=== PATIENT | male | born 1965 | race Caucasian/White ===

== ENCOUNTER 2022-01-13 13:16 | Inpatient (IN) | payer BC ==
[~2022-01-13] VITALS: Ht 188 cm; Wt 109.1 kg
[2022-01-13] VITALS (24 sets, daily range): BP systolic 140–199; BP diastolic 86–110
[2022-01-13] MEDS ORDERED: fentaNYL PF VIAL 100 MCG/2 ML VIAL ONE (13:18)
[2022-01-13] MEDS ORDERED: MIDAZOLAM HCL/PF 2 MG/2 ML VIAL. ONE (13:19)
[2022-01-13] MEDS ORDERED: BIVALIRUDIN 250 MG VIAL. IVP ONE ×2 (13:19→14:00)
[2022-01-13] MEDS ORDERED: IODIXANOL 320 MG/ML 100 ML VIAL. ONE ×2 (13:24→13:50)
[2022-01-13] MEDS ORDERED: NITROGLYCERIN 200 MCG/2 ML SYRINGE FOR CATH/VASC LAB. ONE (13:40)
[2022-01-13] MEDS ORDERED: TICAGRELOR 90 MG TABLET. ONE (13:59)
[2022-01-13] MEDS ORDERED: MIDAZOLAM HCL/PF 2 MG/2 ML VIAL. IV ONE (14:00)
[2022-01-13] MEDS ORDERED: fentaNYL PF VIAL 100 MCG/2 ML VIAL IV ONE (14:00)
[2022-01-13] MEDS ORDERED: TICAGRELOR 90 MG TABLET. PO ONE (14:00)
[2022-01-13] MEDS ORDERED: NITROGLYCERIN 200 MCG/2 ML SYRINGE FOR CATH/VASC LAB. IART ONE (14:00)
[2022-01-13] MEDS ORDERED: IODIXANOL 320 MG/ML 100 ML VIAL. IART ONE (14:00)
[2022-01-13] MEDS ORDERED: LIDOCAINE 1% Multi-Dose 20 ML VIAL. INJ ONE (14:00)
--- NOTE | 2022-01-13 14:05 | PDOC ---
MODERATE SEDATION ASSESSMENT RISKS/ALTERNATIVES Risks/Alternatives Risks and alternatives of this type of sedation and procedure discussed with: RISK/ALTERNATIVES: Patient H & P ON CHART H & P H & P on chart and reviewed for co-morbid conditions and appropriate labs. H&P ON CHART: Yes STATUS PREG STATUS ASSESSED: N/A MEDS/ALLERGIES REVIEWED Meds/Allergies Reviewed Medications and Allergies including time and route of recently administered narcotics and sedatives. MEDS/ALLERGIES REVIEWED: Yes ASA RATING ASA RATING: III AIRWAY ASSESSMENT Airway Assessment Airway patency, oral function limitations, presence of caps, crowns, dentures, partials, and ability to extend neck assessed. AIRWAY ASSESSMENT: Yes MALLAMPATI SCORE MALLAMPATI SCORE: II PRE-SEDATION ASSESSMENT PRE-SEDATION ASSESSMENT: Yes BRUCE MARX MD Jan 13, 2022 14:05
--- NOTE | 2022-01-13 14:05 | PDOC2 ---
CONSULT Date of Consult Date of Consult DATE: 01/13/22 TIME: 14:05 Reason for Consult Reason for Consult: Acute STEMI Referring Physician Referring Physician: Dr. Verma Identification/Chief Complaint Chief Complaint CP Source Source: Chart review, Patient History of Present Illness Reason for Visit: 56 y/o male without any previous cardiac history initially presented to [facility] ED with retrosternal chest pressure that started last night, waxing and waning but became intense and continuous this morning at work. EKG at [facility] showed anterior ST elevations prompting code STEMI activation and emergent transfer to [facility] for cardiac cath and possible PCI. He complained of mild associated dyspnea and nausea but denied any orthopnea/PND, palpitations or syncope. He is a non- smoker but has strong family history of premature CAD Past Medical History Past Medical History Hypertension Hyperlipidemia Diabetes mellitus type 2 Sarcoidosis Past Surgical History Past Surgical History Cholecystectomy L radius fracture repair Family History Family History Positive for premature CAD Social History No ALCOHOL: rare Drugs: None Current Medications Current Medications Current Medications Fentanyl Citrate (Fentanyl 2ml Vial) 100 mcg STK-MED ONCE .ROUTE ; Start 01/13/22 at 13:18; Stop 01/13/22 at 13:18; Status DC Midazolam HCl (Versed) 2 mg STK-MED ONCE .ROUTE ; Start 01/13/22 at 13:19; Stop 01/13/22 at 13:19; Status DC Bivalirudin (Angiomax) 250 mg STK-MED ONCE IVP ; Start 01/13/22 at 13:19; Stop 01/13/22 at 13:19; Status DC Iodixanol (Visipaque 320) 100 ml STK-MED ONCE .ROUTE ; Start 01/13/22 at 13:24; Stop 01/13/22 at 13:24; Status DC Nitroglycerin (Nitroglycerin) 200 mcg STK-MED ONCE .ROUTE ; Start 01/13/22 at 13:40; Stop 01/13/22 at 13:40; Status DC Iodixanol (Visipaque 320) 100 ml STK-MED ONCE .ROUTE ; Start 01/13/22 at 13:50; Stop 01/13/22 at 13:50; Status DC Nitroglycerin (Nitroglycerin) 200 mcg 1X ONCE IART Last administered on 01/13/22at 13:58; Start 01/13/22 at 14:00; Stop 01/13/22 at 14:01; Status DC Heparin Sodium/ Sodium Chloride (HEPARIN for ARTERIAL LINE FLUSH) 1,000 unit 1X ONCE IART Last administered on 01/13/22at 13:58; Start 01/13/22 at 14:00; Stop 01/13/22 at 14:01; Status DC Midazolam HCl (Versed) 2 mg 1X ONCE IV Last administered on 01/13/22at 13:24; Start 01/13/22 at 14:00; Stop 01/13/22 at 14:01; Status DC Fentanyl Citrate (Fentanyl 2ml Vial) 100 mcg 1X ONCE IV Last administered on 01/13/22at 13:24; Start 01/13/22 at 14:00; Stop 01/13/22 at 14:01; Status DC Iodixanol (Visipaque 320) 100 ml 1X ONCE IART Last administered on 01/13/22at 13:58; Start 01/13/22 at 14:00; Stop 01/13/22 at 14:01; Status DC Bivalirudin (Angiomax) 250 mg 1X ONCE IVP Last administered on 01/13/22at 13:31; Start 01/13/22 at 14:00; Stop 01/13/22 at 14:01; Status DC Ticagrelor (Brilinta) 180 mg 1X ONCE PO ; Start 01/13/22 at 14:00; Stop 01/13/22 at 14:01; Status DC Lidocaine HCl (Lidocaine 1% 20ml Vial) 20 ml 1X ONCE INJ Last administered on 01/13/22at 13:23; Start 01/13/22 at 14:00; Stop 01/13/22 at 14:01; Status DC Ticagrelor (Brilinta) 90 mg STK-MED ONCE .ROUTE ; Start 01/13/22 at 13:59; Stop 01/13/22 at 14:00; Status DC Allergies Allergies: Coded Allergies: No Known Drug Allergies (Unverified , 01/13/22) ROS PSYCHOLOGICAL ROS: No: Hallucinations Eyes: No Loss of vision HEENT: No: Epistaxis Respiratory: YES: Shortness of breath; No: Hemoptysis Cardiovascular: yes Chest Pain; No Palpitations Gastrointestinal: Yes Nausea Genitourinary: No Hematuria Neurological: No Seizures Skin: No Rash Physical Exam General: Alert, Oriented X3 HEENT: Atraumatic Lungs: Clear to auscultation Heart: Regular rate Abdomen: Soft, No tenderness Extremities: No edema Psych/Mental Status: Mood NL Vitals VITALS Vital Signs Date Time Temp Pulse Resp B/P (MAP) Pulse Ox O2 Delivery O2 Flow Rate FiO2 01/13/22 13:24 94 Nasal Cannula 3.0 Assessment/Plan Assessment/Plan 1. Acute anterior wall STEMI: Patient underwent emergent cardiac cath after being given ASA and heparin. He had critical stenoses involving LAD (culprit vessel) and ramus intermedius and underwent successful PCI/EMILY placements. He has residual 70% RCA stenosis that will probably be intervened upon at later date in 2-4 weeks. LVEF preserved on left ventriculogram. Continue DAPT and secondary prevention measures. We will refer patient for cardiac rehab upon DC 2. Acute diastolic HF as evidenced by elevated EDP - better compensated 3. HTN: controlled 4. HLP: statins 5. DM-2: treat per IM - consider Jardiance Thank you for your consultation Total critical care time spent evaluating and managing patient 45 mins BRUCE MARX MD Jan 13, 2022 14:05
[2022-01-13] MEDS ORDERED: ACETAMINOPHEN 325 MG TABLET. PO PRN (14:15)
[2022-01-13] MEDS: IV 1/2 NORMAL SALINE 1,000 ML IV SCH (14:34)
[2022-01-13] MEDS ORDERED: AMLO10TA4 PO (14:48)
[2022-01-13] MEDS ORDERED: INSU100I11 SQ (14:48)
[2022-01-13] MEDS ORDERED: LOSA100T14 PO (14:48)
[2022-01-13] MEDS ORDERED: ALLO300T PO (14:48)
[2022-01-13] MEDS ORDERED: INSU100I27 SQ (14:48)
[2022-01-13] MEDS ORDERED: ONDANSETRON PF 4 MG/2 ML VIAL. IVP PRN (15:00)
--- NOTE | 2022-01-13 15:03 | PDOC1 ---
History and Physical Date of Admission Date of Admission DATE: 01/13/22 TIME: 15:03 Identification/Chief Complaint Chief Complaint STEMI Source Source: Chart review, Patient History of Present Illness History of Present Illness Mr Qureshi is a 56yo male with PMHx HLD, DM2, and sarcoidosis who presented to [place] ED in [place], [place] c/o chest pain. Pain started at midnight. He initially described to the ED staff a pressure-like sensation in the center of his chest. 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 He was short of breath initially as well. He does have a history of high cholesterol and type 2 diabetes. He rarely drinks, does not smoke or use smokeless tobacco Labs with WBC 10.8, Hb 14.8, platelets 274, NA 135, K3.7, BUN 26, CR 1.8, glucose 246, calcium 9.4, bilirubin 0.7, AST 25, ALT 45, alkaline phosphatase 38, NT proBNP is 734 and high-sensitivity troponin was 364 at 12:27 PM, albumin 4.1, rapid COVID-19 rapid influenza negative. Chest radiograph no acute abnormality COVID twelve-lead EKG rate [address] elevations in V1 V2 with reciprocal depressions in inferior leads. Transferred to [place] for urgent cardiac catheterization. Per report to [employer] with stenting to LAD and OM and RCA with 70% occlusion no intervention on this artery. Seen bedside in ICU. Notes he is chest pain-free and his pain in his right arm has resolved. He is able to relate that he and his are moving from [place] and recently closed on a house in [facility]. He works sales for [employer]. Past Medical History Cardiovascular: Hyperlipidemia Pulmonary: Other (Sarcoidosis) Endocrine: Diabetes Past Surgical History Past Surgical History: Cholecystectomy, Other (left radius fracture - s/p plate removal) Family History Family History: Cancer (Lung - sister), Coronary Artery Disease (Father), Diabetes (mother) Social History Smoke: No ALCOHOL: rare Drugs: None Current Medications Current Medications Current Medications Fentanyl Citrate (Fentanyl 2ml Vial) 100 mcg STK-MED ONCE .ROUTE ; Start 01/13/22 at 13:18; Stop 01/13/22 at 13:18; Status DC Midazolam HCl (Versed) 2 mg STK-MED ONCE .ROUTE ; Start 01/13/22 at 13:19; Stop 01/13/22 at 13:19; Status DC Bivalirudin (Angiomax) 250 mg STK-MED ONCE IVP ; Start 01/13/22 at 13:19; Stop 01/13/22 at 13:19; Status DC Iodixanol (Visipaque 320) 100 ml STK-MED ONCE .ROUTE ; Start 01/13/22 at 13:24; Stop 01/13/22 at 13:24; Status DC Nitroglycerin (Nitroglycerin) 200 mcg STK-MED ONCE .ROUTE ; Start 01/13/22 at 13:40; Stop 01/13/22 at 13:40; Status DC Iodixanol (Visipaque 320) 100 ml STK-MED ONCE .ROUTE ; Start 01/13/22 at 13:50; Stop 01/13/22 at 13:50; Status DC Nitroglycerin (Nitroglycerin) 200 mcg 1X ONCE IART Last administered on 01/13/22at 13:58; Start 01/13/22 at 14:00; Stop 01/13/22 at 14:01; Status DC Heparin Sodium/ Sodium Chloride (HEPARIN for ARTERIAL LINE FLUSH) 1,000 unit 1X ONCE IART Last administered on 01/13/22at 13:58; Start 01/13/22 at 14:00; Stop 01/13/22 at 14:01; Status DC Midazolam HCl (Versed) 2 mg 1X ONCE IV Last administered on 01/13/22at 13:24; Start 01/13/22 at 14:00; Stop 01/13/22 at 14:01; Status DC Fentanyl Citrate (Fentanyl 2ml Vial) 100 mcg 1X ONCE IV Last administered on 01/13/22at 13:24; Start 01/13/22 at 14:00; Stop 01/13/22 at 14:01; Status DC Iodixanol (Visipaque 320) 100 ml 1X ONCE IART Last administered on 01/13/22at 13:58; Start 01/13/22 at 14:00; Stop 01/13/22 at 14:01; Status DC Bivalirudin (Angiomax) 250 mg 1X ONCE IVP Last administered on 01/13/22at 13:31; Start 01/13/22 at 14:00; Stop 01/13/22 at 14:01; Status DC Ticagrelor (Brilinta) 180 mg 1X ONCE PO Last administered on 01/13/22at 14:00; Start 01/13/22 at 14:00; Stop 01/13/22 at 14:01; Status DC Lidocaine HCl (Lidocaine 1% 20ml Vial) 20 ml 1X ONCE INJ Last administered on 01/13/22at 13:23; Start 01/13/22 at 14:00; Stop 01/13/22 at 14:01; Status DC Ticagrelor (Brilinta) 90 mg STK-MED ONCE .ROUTE ; Start 01/13/22 at 13:59; Stop 01/13/22 at 14:00; Status DC Sodium Chloride 1,000 ml @ 100 mls/hr Q10H IV Last administered on 01/13/22at 14:34; Start 01/13/22 at 14:15 Aspirin (Ecotrin) 81 mg DAILYWBKFT PO ; Start 01/14/22 at 08:00 Ticagrelor (Brilinta) 90 mg BID PO ; Start 01/14/22 at 09:00 Metoprolol Tartrate (Lopressor) 12.5 mg BID PO ; Start 01/13/22 at 21:00 Atorvastatin Calcium (Lipitor) 40 mg QHS PO ; Start 01/13/22 at 21:00 Acetaminophen (Tylenol) 650 mg PRN Q6HRS PRN PO MILD PAIN / TEMP > 100.3'F; Start 01/13/22 at 14:15 Active Scripts Active Reported Losartan Potassium 100 Mg Tablet 100 Mg PO DAILY Humalog (Insulin Lispro) 100 Unit/1 Ml Insuln.pen 20 Unit SQ TIDWMEALS Levemir Flextouch (Insulin Detemir) 100 Unit/1 Ml Insuln.pen 60 Unit SQ HS Norvasc (Amlodipine Besylate) 10 Mg Tablet 10 Mg PO DAILY Allopurinol 300 Mg Tablet 300 Mg PO DAILY Allergies Allergies: Coded Allergies: No Known Drug Allergies (Unverified , 01/13/22) ROS General: YES: Fatigue, Malaise, Appetite; No: Chills, Night Sweats, Other PSYCHOLOGICAL ROS: YES: Anxiety; No: Behavioral Disorder, Concentration difficultie, Decreased libido, Depression, Disorientation, Hallucinations, Hostility, Irritablity, Memory d ifficulties, Mood Swings, Obsessive thoughts, Physical abuse, Sexual abuse, Sleep disturbances, Suicidal ideation, Other Eyes: No Blurry vision, No Decreased vision, No Double vision, No Dry eyes, No Excessive tearing, No Eye Pain, No Itchy Eyes, No Loss of vision, No Photophobia, No Scotomata, No Uses contacts, No Uses glasses, No Other HEENT: No: Heacaches, Visual Changes, Hearing change, Nasal congestion, Nasal discharge, Oral lesions, Sinus pain, Sore Throat, Epistaxis, Sneezing, Snoring, Tinnitus, Vertigo, Vocal changes, Other ALLERGY AND IMMUNOLOGY: No: Hives, Insect Bite Sensitivity, Itchy/Watery Eyes, Nasal Congestion, Post Nasal Drip, Seasonal Allergies, Other Hematological and Lymphatic: No: Bleeding Problems, Blood Clots, Blood Transfusions, Brusing, Night Sweats, Pallor, Swollen Lymph Nodes, Other ENDOCRINE: No: Breast Changes, Galactorrhea, Hair Pattern Changes, Hot Flashes, Malaise/lethargy, Mood Swings, Palpitations, Polydipsia/polyuria, Skin Changes, Temperature Intolerance, Unexpected Weight Changes, Other Breast: No New/Changing Breast Lumps, No Nipple changes, No Nipple discharge, No Other Respiratory: YES: Shortness of breath; No: Cough, Hemoptysis, Orthopnea, Pleuritic Pain, SOB with excertion, Sputum Changes, Stridor, Tachypnea, Wheezing, Other Cardiovascular: yes Chest Pain; No Palpitations, No Orthopnea, No Paroxysmal Noc. Dyspnea, No Edema, No Lt Headedness, No Other Gastrointestinal: Yes Nausea; No Vomiting, No Abdominal Pain, No Diarrhea, No Constipation, No Melena, No Hematochezia, No Other Genitourinary: No Dysuria, No Frequency, No Incontinence, No Hematuria, No Retention, No Discharge, No Urgency, No Pain, No Flank Pain, No Other, No , No , No , No , No , No , No Neurological: No Behavorial Changes, No Bowel/Bladder ControlChng, No Confusion, No Dizziness, No Gait Disturbance, No Headaches, No Impaired Coord/balance, No Memory Loss, No Numbness/Tingling, No Seizures, No Speech Problems, No Tremors, No Visual Changes, No Weakness, No Other Skin: No Dry Skin, No Eczema, No Hair Changes, No Lumps, No Mole Changes, No Mottling, No Nail Changes, No Pruritus, No Rash, No Skin Lesion Changes, No Other, No Acne Physical Exam General: Alert, Oriented X3, Cooperative, mild distress HEENT: Atraumatic, PERRLA, EOMI, Mucous membr. moist/pink Lungs: Clear to auscultation, Normal air movement Heart: S1S2, RRR, no thrills, no rubs, no gallops, no murmurs Abdomen: Normal bowel sounds, Soft, No tenderness, No hepatosplenomegaly, No masses Rectal Exam: not examined Extremities: No clubbing, No cyanosis, No edema, Normal pulses, No tenderness/swelling Skin: No rashes, No breakdown, No significant lesion Neuro: Normal speech, Strength at 5/5 X4 ext, Normal tone, Sensation intact, Cranial nerves 3-12 NL, Reflexes 2+ Psych/Mental Status: Mental status NL, Mood NL Vitals Vitals Vital Signs Date Time Temp Pulse Resp B/P (MAP) Pulse Ox O2 Delivery O2 Flow Rate FiO2 01/13/22 14:48 75 18 170/99 (122) 99 Room Air 01/13/22 14:19 3.0 01/13/22 14:00 98.2 98.2 Images Images Chest radiograph: Heart is normal in size. The lungs are hypoexpanded. There is no consolidation, pleural effusion, or pneumothorax. IMPRESSION: No acute cardiopulmonary abnormality. VTE Prophylaxis Ordered VTE Prophylaxis Devices: No VTE Pharmacological Prophylaxi: Yes Assessment/Plan Assessment/Plan STEMI - s/p LAD and OM stenting. on brilinta, ASA, statin. Will cont glycemic control with insulin. Cardiology following HLD - statin DM2 - on insulin. previously did not tolerate metformin due to GI side effects HTN - on amlodipine, losartan NICKY - no CKD per patient, Cr 1.8 initially. Will monitor renal function Obesity - counseled on lifestyle modification Sarcoidosis - from prior bone marrow biopsy, no pulm symptoms, has outpatient f/u in [place], [place] FEN - ADA diet PPX - heparin FULL CODE Dispo - ICU for STEMI care cc time 31 min Justifications for Admission Chest Pain Indications Poss tachycardia?: Yes Justification for admission: Patient has tachycardia (> 100 beats per minute) which is not readily corrected by appropriate treatment within 12 to 24 hours. Other Justification RIFFEL,CHRISTOPHER S MD Jan 13, 2022 15:03
--- NOTE | 2022-01-13 15:09 | CARD ---
MR#: [id number] Date of Study: 01/13/2022 Ordering Physician: BRUCE SHERMAN, Referring Physician: BRUCE SHERMAN, Tech: RT Brandie(R)() APPROVED REPORT Technologist: RT Brandie(R)() Nurse: Chari Alatorre RN Procedure(s) performed: 1. Left heart catheterization, selective coronary angiography and left ventr iculography 2. Successful PCI/drug-eluting stents placement to left anterior descending artery and also the rayray s intermedius artery. FLUORO TIME: 9.9 MIN DOSE: 168 GYCM2 CONTRAST: 260CCS MOD SED:41 MIN INDICATION The indication(s) include : Acute anterior wall ST elevation myocardial infarction. [facility] Clinical Frailty Scale [facility] Clinical Frailty Scale: Managing Well Heart Failure Heart Failure: No CASE TECHNIQUE IV conscious sedation was used throughout procedure with appropriate monitoring and was performed in the presence of a registered nurse who was an independent trained observer other than the physician p erforming the procedure. During this case, Fluoroscopy and low osmolar contrast were used for imaging . Specimen(s) Removed: No Estimated Blood loss: 15 cc's. PROCEDURE NARRATIVE After explaining the risk, benefits and alternative options, informed consent was obtained from patie nt. Patient was brought to the cardiac Corporate Relations Director and his right groin was prepped and draped in the us ual fashion. 20 cc of 2% lidocaine was infiltrated to the skin and subcutaneous tissues for local an esthesia. Arterial access was obtained in the right common femoral artery and a 6 Estonian sheath was inserted. 6 Estonian JL 4 and 6 Estonian JR4 catheters were used to perform selective angiography of the left and right coronary arteries. 6 Estonian pigtail catheter was used to perform left ventriculograp hy. The following findings were noted: FINDINGS 1. Hemodynamics: Elevated left ventricular end-diastolic pressure of 25 mmHg consistent with acute d iastolic heart failure. No pullback gradient across aortic valve. 2. Left ventriculography: Normal left ventricle systolic function with ejection fraction estimated a t 55%. No significant mitral regurgitation was seen. 3. Coronary angiography: a. The left main coronary artery arose from the left sinus of Valsalva, gave rise to the left anteri or descending, ramus intermedius and left circumflex arteries and did not show any significant stenos is. b. The left anterior descending artery showed 95 to 99% stenosis with thrombus in the midsegment. c. The ramus intermedius artery showed 90 to 95% stenosis in the proximal to mid segment. d. The left circumflex artery showed 50 to 60% bifurcation stenosis in the proximal to mid segment o f second obtuse marginal branch. e. The right coronary artery was a dominant vessel arising from the right sinus of Valsalva that elias wed 70% stenosis in the distal segment. INTERVENTION The left main coronary artery was engaged with 6 Estonian XB 3.5 guide catheter. The stenosis in the m id segment of the left anterior sending artery was crossed with a 0.014 inch [employer] guidewire . This was predilated with a 2.5 x 12 mm [employer] Emerge balloon. Following which, this wa s successfully treated with a 3.0 x 18 mm resolute [place] drug-eluting stent. Subsequently, the stenos is in the ramus intermedius artery was crossed with the same [employer] Prow[employer] guidewire. This was also predilated with a 2.5 x 12 mm [employer] Emerge balloon following which this was successfully treated with a 3.0 x 15 mm resolute Jeremy drug-eluting stent. The mid segment of the stent was then postdilated with a 3.0 x 12 mm [employer] [place] Emerge noncompliant balloon. Follow-up angiograp hy showed resolution of both the lesions to 0% with RISHABH-3 distal flow. Patient tolerated the proced ure well. Hemostasis was achieved using Angio-Seal. There were no immediate complications. RISHABH Flow RISHABH Flow (Pre-Intervention): RISHABH-1 RISHABH Flow (Post-Intervention): RISHABH-3 RISHABH Flow RISHABH Flow (Pre-Intervention): RISHABH-1 RISHABH Flow (Post-Intervention): RISHABH-3 Conclusion 1. Significant multivessel coronary artery disease as described above including 95 to 99% stenosis i nvolving left anterior descending artery there was a culprit vessel for patient's acute STEMI. 2. Successful PCI/drug-eluting stents placement to the left anterior descending artery and also the ramus intermedius artery. 3. Normal left ventricle systolic function with ejection fraction estimated at 55%. Recommendations 1. Aspirin 81 mg daily 2. Ticagrelor 90 mg twice daily 3. Plan for staged PCI to RCA in 2 to 4 weeks 4. Cardiovascular risk factor modification and cardiac rehabilitation referral Signed by : Bruce Sherman, Electronically Approved : 01/13/2022 15:08:27
[2022-01-13] MEDS ORDERED: IV DEXTROSE 5% 250 ML BAG. IV PRN (16:30)
[2022-01-13] MEDS ORDERED: INSULIN LISPRO 300 UNITS/3 ML VIAL. SQ ONE (16:30)
[2022-01-13] MEDS: INSULIN LISPRO 300 UNITS/3 ML VIAL. SQ SCH ×2 (16:30→21:35)
[2022-01-13] MEDS ORDERED: DEXTROSE 50% 25 GM / 50ML DISP.SYRIN. IV PRN (16:30)
[2022-01-13] MEDS ORDERED: NITROGLYCERIN PREMIX 250 ML IV PRN (18:15)
[2022-01-13] MEDS ORDERED: METOPROLOL TART IMMED RELEASE 25 MG TABLET. PO SCH (21:00)
[2022-01-13] MEDS: ATORVASTATIN CALCIUM 20 MG TABLET PO SCH (21:30)
[2022-01-13] MEDS: INSULIN GLARGINE SYRINGE. SQ SCH (21:32)
[2022-01-14] VITALS (18 sets, daily range): BP systolic 125–170; BP diastolic 65–98
[2022-01-14] MEDS: IV 1/2 NORMAL SALINE 1,000 ML IV SCH ×3 (00:15→20:15)
[2022-01-14 05:08] LABS: BASO % 0 % (0-3); EOS # 0.1 x10^3/uL (0.0-0.7); EOS % 1 % (0-3); HEMATOCRIT 39.6 % (39.0-53.0); HEMOGLOBIN 13.6 g/dL (13.0-17.5); LYMPH # 1.1 x10^3/uL (1.0-4.8); LYMPH % 10 % (24-48); MEAN CORPUSCULAR HEMOGLOBIN 30 pg (25-35); MEAN CORPUSCULAR HGB CONC 34 g/dL (31-37); MEAN CORPUSCULAR VOLUME 88 fL (79-100); MONO # 0.9 x10^3/uL (0.0-1.1); MONO % 8 % (0-9); NEUT # 8.2 x10^3/uL (1.8-7.7); NEUT % 80 % (31-73); PLATELET COUNT 236 x10^3/uL (140-400); RED BLOOD COUNT 4.51 x10^6/uL (4.30-5.70); RED CELL DISTRIBUTION WIDTH 13.8 % (11.5-14.5); WHITE BLOOD COUNT 10.3 x10^3/uL (4.0-11.0)
[2022-01-14 05:22] LABS: ALBUMIN 3.3 g/dL (3.4-5.0); ALBUMIN/GLOBULIN RATIO 0.8 (1.0-1.7); CALCIUM 8.4 mg/dL (8.5-10.1); CREATININE 1.9 mg/dL (0.7-1.3); GFR 36.7; POTASSIUM 3.8 mmol/L (3.5-5.1); TOTAL BILIRUBIN 0.7 mg/dL (0.2-1.0); TOTAL PROTEIN 7.6 g/dL (6.4-8.2)
[2022-01-14 05:25] LABS: CHOLESTEROL/HDL RATIO 4.9
[2022-01-14] MEDS: ASPIRIN ENTERIC COATED 81 MG TABLET.DR. PO SCH (08:07)
[2022-01-14] MEDS: ALLOPURINOL 300 MG TABLET. PO SCH (08:07)
[2022-01-14] MEDS: LOSARTAN POTASSIUM 50 MG TABLET. PO SCH (08:08)
[2022-01-14] MEDS: TICAGRELOR 90 MG TABLET. PO SCH ×2 (08:09→21:01)
--- NOTE | 2022-01-14 08:10 | PDOC ---
[employer] PROGRESS NOTE Date of Service DOS: DATE: 01/14/22 TIME: 08:07 Chief Complaint Chief Complaint STEMI - s/p LAD and OM stenting. on brilinta, ASA, statin. Will cont glycemic control with insulin. Cardiology following HLD - statin DM2 - on insulin. previously did not tolerate metformin due to GI side effects HTN - on amlodipine, losartan NICKY - no CKD per patient, Cr 1.8 initially. Will monitor renal function. This may be his baseline. Obesity - counseled on lifestyle modification Sarcoidosis - from prior bone marrow biopsy, no pulm symptoms, has outpatient f/u in [place], [place] FEN - ADA diet PPX - heparin FULL CODE Dispo - ICU for STEMI care History of Present Illness History of Present Illness Mr Qureshi is a 56yo male with PMHx HLD, DM2, and sarcoidosis who presented to [facility] in [place], [place] c/o chest pain. Pain started at midnight. He initially described to the ED staff a pressure-like sensation in the center of his chest. 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 He was short of breath initially as well. He does have a history of high cholesterol and type 2 diabetes. He rarely drinks, does not smoke or use smokeless tobacco Labs with WBC 10.8, Hb 14.8, platelets 274, NA 135, K3.7, BUN 26, CR 1.8, glucose 246, calcium 9.4, bilirubin 0.7, AST 25, ALT 45, alkaline phosphatase 38, NT proBNP is 734 and high-sensitivity troponin was 364 at 12:27 PM, albumin 4.1, rapid COVID-19 rapid influenza negative. Chest radiograph no acute abnormality COVID twelve-lead EKG rate [address] elevations in V1 V2 with reciprocal depressions in inferior leads. Transferred to [place] for urgent cardiac catheterization. Per report to Metal Alloy Scientist with stenting to LAD and OM and RCA with 70% occlusion no intervention on this artery. Seen bedside in ICU. Notes he is chest pain-free and his pain in his right arm has resolved. He is able to relate that he and his are moving from [facility] and recently closed on a house in [facility]. He works sales for [employer]. 01/14: Seen bedside. No further chest pain no right arm pain. Pending echocardiogram currently. He notes he had significant severe psychiatric side effects depression and rage previously on beta-blockers and he requests these be avoided Vitals/I&O Vitals/I&O: Vital Signs Date Time Temp Pulse Resp B/P (MAP) Pulse Ox O2 Delivery O2 Flow Rate FiO2 01/14/22 06:00 13 152/79 97 Room Air 01/14/22 04:00 98.1 74 98.1 01/13/22 14:19 3.0 I & O 01/13/22 01/13/22 01/14/22 15:00 23:00 07:00 Intake Total 20 ml 520 ml 420 ml Output Total 500 ml 1050 ml Balance 20 ml 20 ml -630 ml Physical Exam General: Alert, Oriented X3 Heart: Regular rate Abdomen: Soft, No tenderness Extremities: No edema Skin: No rashes, No breakdown, No significant lesion Labs Labs: Laboratory Tests Test 01/14/22 04:50 White Blood Count 10.3 x10^3/uL (4.0-11.0) Red Blood Count 4.51 x10^6/uL (4.30-5.70) Hemoglobin 13.6 g/dL (13.0-17.5) Hematocrit 39.6 % (39.0-53.0) Mean Corpuscular Volume 88 fL (79-100) Mean Corpuscular Hemoglobin 30 pg (25-35) Mean Corpuscular Hemoglobin Concent 34 g/dL (31-37) Red Cell Distribution Width 13.8 % (11.5-14.5) Platelet Count 236 x10^3/uL (140-400) Neutrophils (%) (Auto) 80 % (31-73) Lymphocytes (%) (Auto) 10 % (24-48) Monocytes (%) (Auto) 8 % (0-9) Eosinophils (%) (Auto) 1 % (0-3) Basophils (%) (Auto) 0 % (0-3) Neutrophils # (Auto) 8.2 x10^3/uL (1.8-7.7) Lymphocytes # (Auto) 1.1 x10^3/uL (1.0-4.8) Monocytes # (Auto) 0.9 x10^3/uL (0.0-1.1) Eosinophils # (Auto) 0.1 x10^3/uL (0.0-0.7) Basophils # (Auto) 0.0 x10^3/uL (0.0-0.2) Sodium Level 134 mmol/L (136-145) Potassium Level 3.8 mmol/L (3.5-5.1) Chloride Level 101 mmol/L (98-107) Carbon Dioxide Level 24 mmol/L (21-32) Anion Gap 9 (6-14) Blood Urea Nitrogen 23 mg/dL (8-26) Creatinine 1.9 mg/dL (0.7-1.3) Estimated GFR (Cockcroft-Gault) 36.7 BUN/Creatinine Ratio 12 (6-20) Glucose Level 242 mg/dL (70-99) Calcium Level 8.4 mg/dL (8.5-10.1) Total Bilirubin 0.7 mg/dL (0.2-1.0) Aspartate Amino Transf (AST/SGOT) 82 U/L (15-37) Alanine Aminotransferase (ALT/SGPT) 44 U/L (16-63) Alkaline Phosphatase 36 U/L (46-116) Total Protein 7.6 g/dL (6.4-8.2) Albumin 3.3 g/dL (3.4-5.0) Albumin/Globulin Ratio 0.8 (1.0-1.7) Triglycerides Level 266 mg/dL (0-150) Cholesterol Level 148 mg/dL (0-200) LDL Cholesterol, Calculated 65 mg/dL (0-100) VLDL Cholesterol, Calculated 53 mg/dL (0-40) Non-HDL Cholesterol Calculated 118 mg/dL (0-129) HDL Cholesterol 30 mg/dL (40-60) Cholesterol/HDL Ratio 4.9 Thyroid Stimulating Hormone (TSH) 2.481 uIU/mL (0.358-3.74) Comment Review of Relevant I have reviewed the following items rj (where applicable) has been applied. Medications: Current Medications Medications (Trade) Dose Ordered Sig/Jossue Route PRN Reason Start Time Stop Time Status Last Admin Dose Admin Nitroglycerin (Nitroglycerin) 200 mcg 1X ONCE IART 01/13/22 14:00 01/13/22 14:01 DC 01/13/22 13:58 Heparin Sodium/ Sodium Chloride (HEPARIN for ARTERIAL LINE FLUSH) 1,000 unit 1X ONCE IART 01/13/22 14:00 01/13/22 14:01 DC 01/13/22 13:58 Midazolam HCl (Versed) 2 mg 1X ONCE IV 01/13/22 14:00 01/13/22 14:01 DC 01/13/22 13:24 Fentanyl Citrate (Fentanyl 2ml Vial) 100 mcg 1X ONCE IV 01/13/22 14:00 01/13/22 14:01 DC 01/13/22 13:24 Iodixanol (Visipaque 320) 100 ml 1X ONCE IART 01/13/22 14:00 01/13/22 14:01 DC 01/13/22 13:58 Bivalirudin (Angiomax) 250 mg 1X ONCE IVP 01/13/22 14:00 01/13/22 14:01 DC 01/13/22 13:31 Ticagrelor (Brilinta) 180 mg 1X ONCE PO 01/13/22 14:00 01/13/22 14:01 DC 01/13/22 14:00 Lidocaine HCl (Lidocaine 1% 20ml Vial) 20 ml 1X ONCE INJ 01/13/22 14:00 01/13/22 14:01 DC 01/13/22 13:23 Sodium Chloride 1,000 ml @ 100 mls/hr Q10H IV 01/13/22 14:15 01/14/22 00:15 Metoprolol Tartrate (Lopressor) 12.5 mg BID PO 01/13/22 21:00 01/13/22 21:30 Atorvastatin Calcium (Lipitor) 40 mg QHS PO 01/13/22 21:00 01/13/22 21:30 Ondansetron HCl (Zofran) 4 mg PRN Q6HRS PRN IVP NAUSEA/VOMITING 01/13/22 15:00 01/14/22 03:29 Insulin Glargine (Lantus Syringe) 40 unit QHS SQ 01/13/22 21:00 01/13/22 21:32 Insulin Human Lispro (HumaLOG) 0-9 UNITS TIDACHC SQ 01/13/22 16:30 01/13/22 21:35 Insulin Human Lispro (HumaLOG) 7 units 1X ONCE SQ 01/13/22 16:30 01/13/22 16:31 DC 01/13/22 16:36 Nitroglycerin/ Dextrose 250 ml @ 1.5 mls/hr CONT PRN IV SEE I/O RECORD 01/13/22 18:15 01/13/22 18:16 Justifications for Admission Chest Pain Indications Poss tachycardia?: Yes Justification for admission: Patient has tachycardia (> 100 beats per minute) which is not readily corrected by appropriate treatment within 12 to 24 hours. Other Justification CLAUDE ELIZONDO MD Jan 14, 2022 08:10
[2022-01-14] MEDS: INSULIN LISPRO 300 UNITS/3 ML VIAL. SQ SCH ×5 (08:34→21:00)
--- NOTE | 2022-01-14 11:29 | PDOC ---
SUDHEER MUÑOZ MEAT SCRUBBER 01/14/22 1129: CARDIO Progress Notes Date and Time Date of Service 01/14/2022 Time of Evaluation 1150 Subjective Subjective: No Chest Pain, No shortness of breath, No Palpitations Vitals Vitals Vital Signs Date Time Temp Pulse Resp B/P (MAP) Pulse Ox O2 Delivery O2 Flow Rate FiO2 01/14/22 08:08 79 170/99 01/14/22 08:00 98.2 16 99 Room Air 98.2 01/13/22 14:19 3.0 Weight Weight [ ] Input and Output Intake and Output Intake and Output 01/14/22 07:00 Intake Total 960 ml Output Total 1550 ml Balance -590 ml Intake Oral 960 ml Output Urine Total 1550 ml Laboratory Labs Laboratory Tests Test 01/13/22 15:47 01/13/22 21:31 01/14/22 04:50 Glucose (Fingerstick) 236 mg/dL (70-99) 202 mg/dL (70-99) White Blood Count 10.3 x10^3/uL (4.0-11.0) Red Blood Count 4.51 x10^6/uL (4.30-5.70) Hemoglobin 13.6 g/dL (13.0-17.5) Hematocrit 39.6 % (39.0-53.0) Mean Corpuscular Volume 88 fL (79-100) Mean Corpuscular Hemoglobin 30 pg (25-35) Mean Corpuscular Hemoglobin Concent 34 g/dL (31-37) Red Cell Distribution Width 13.8 % (11.5-14.5) Platelet Count 236 x10^3/uL (140-400) Neutrophils (%) (Auto) 80 % (31-73) Lymphocytes (%) (Auto) 10 % (24-48) Monocytes (%) (Auto) 8 % (0-9) Eosinophils (%) (Auto) 1 % (0-3) Basophils (%) (Auto) 0 % (0-3) Neutrophils # (Auto) 8.2 x10^3/uL (1.8-7.7) Lymphocytes # (Auto) 1.1 x10^3/uL (1.0-4.8) Monocytes # (Auto) 0.9 x10^3/uL (0.0-1.1) Eosinophils # (Auto) 0.1 x10^3/uL (0.0-0.7) Basophils # (Auto) 0.0 x10^3/uL (0.0-0.2) Sodium Level 134 mmol/L (136-145) Potassium Level 3.8 mmol/L (3.5-5.1) Chloride Level 101 mmol/L (98-107) Carbon Dioxide Level 24 mmol/L (21-32) Anion Gap 9 (6-14) Blood Urea Nitrogen 23 mg/dL (8-26) Creatinine 1.9 mg/dL (0.7-1.3) Estimated GFR (Cockcroft-Gault) 36.7 BUN/Creatinine Ratio 12 (6-20) Glucose Level 242 mg/dL (70-99) Calcium Level 8.4 mg/dL (8.5-10.1) Total Bilirubin 0.7 mg/dL (0.2-1.0) Aspartate Amino Transf (AST/SGOT) 82 U/L (15-37) Alanine Aminotransferase (ALT/SGPT) 44 U/L (16-63) Alkaline Phosphatase 36 U/L (46-116) Total Protein 7.6 g/dL (6.4-8.2) Albumin 3.3 g/dL (3.4-5.0) Albumin/Globulin Ratio 0.8 (1.0-1.7) Triglycerides Level 266 mg/dL (0-150) Cholesterol Level 148 mg/dL (0-200) LDL Cholesterol, Calculated 65 mg/dL (0-100) VLDL Cholesterol, Calculated 53 mg/dL (0-40) Non-HDL Cholesterol Calculated 118 mg/dL (0-129) HDL Cholesterol 30 mg/dL (40-60) Cholesterol/HDL Ratio 4.9 Thyroid Stimulating Hormone (TSH) 2.481 uIU/mL (0.358-3.74) Physical Exam HEENT: Neck Supple W Full Motion Chest: Symmetric LUNGS: Clear to Auscultation Heart: S1S2, RRR (SR) Abdomen: Soft N/T Extremities: No Edema, No Calf Tenderness Neurology: alert, oriented, follow commands Other Exams Right groin arteriotomy site intact, no erythema, soft and no hematoma, neurovascular status to bilateral LE intact Assessment Assessment 1. Acute anterior wall STEMI: critical stenoses involving LAD (culprit vessel) and ramus intermedius and underwent successful PCI/EMILY placements. He has residual 70% RCA stenosis 2. Acute diastolic CHF as evidenced by elevated EDP - better compensated 3. HTN: labile episodes 4. HLP 5. DM-2: per PCP 6. NICKY vs CKD: unknown baseline Recommendations 1. ASA/brilinta. Secondary prevention measures. Start on coreg 2. BMP tomorrow. If Cr trends up then may consider holding losartan. Will consider jardiance moving forward 3. Will need better control of BG, A1C pending 4. Cardiac rehab 5. Anticipate DC tomorrow 6. Plan for staged PCI to RCA in 2 to 4 weeks Justicifation of Admission Dx: Justifications for Admission: Justification of Admission Dx: Yes BRUCE MARX MD 01/14/221801: CARDIO Progress Notes Assessment Assessment Patient seen and examined. Agree with BUCKLE ATTACHER's assessment and plan. s/p successful PCI/EMILY to LAD and ramus intermedius yesterday. Continue DAPT. Telemetry did not show any significant arrhythmias. LV systolic function normal. Plan for staged PCI to RCA in 2 to 4 weeks. Agree with Shediance to optimize CV outcomes SUDHEER MUÑOZ APRN Jan 14, 2022 11:29 BRUCE MARX MD Jan 14, 2022 18:02
[2022-01-14] MEDS ORDERED: CARVEDILOL 6.25 MG TABLET. PO SCH (12:00)
[2022-01-14] MEDS ORDERED: INSULIN LISPRO 300 UNITS/3 ML VIAL. SQ SCH ×2 (16:30)
[2022-01-14] MEDS: INSULIN GLARGINE SYRINGE. SQ SCH (21:01)
[2022-01-14] MEDS: ATORVASTATIN CALCIUM 20 MG TABLET PO SCH (21:01)
[2022-01-15] VITALS: BP 142/76
[2022-01-15 01:09] LABS: HEMOGLOBIN A1C 8.9 % (4.8-5.6)
[2022-01-15 04:14] VITALS: BP 141/92
[2022-01-15] MEDS: IV 1/2 NORMAL SALINE 1,000 ML IV SCH (05:38)
--- NOTE | 2022-01-15 05:45 | NUR ---
Pt adamant about not receiving any beta blockers states they "make him crazy", education was provided to pt. Pt declined night time sliding scale insulin as he only takes it at home with meals. Fluids were stopped earlier on day shift as patient PO intake is adequate.
[2022-01-15 06:12] LABS: CALCIUM 8.6 mg/dL (8.5-10.1); CREATININE 2.1 mg/dL (0.7-1.3); GFR 32.7; POTASSIUM 3.6 mmol/L (3.5-5.1)
[2022-01-15] MEDS: INSULIN LISPRO 300 UNITS/3 ML VIAL. SQ SCH ×4 (07:30→11:30)
[2022-01-15] MEDS: ALLOPURINOL 300 MG TABLET. PO SCH (08:05)
[2022-01-15] MEDS: TICAGRELOR 90 MG TABLET. PO SCH (08:05)
[2022-01-15] MEDS: ASPIRIN ENTERIC COATED 81 MG TABLET.DR. PO SCH (08:06)
[2022-01-15] MEDS: LOSARTAN POTASSIUM 50 MG TABLET. PO SCH (08:06)
--- NOTE | 2022-01-15 09:32 | PDOC ---
[employer] PROGRESS NOTE Date of Service DOS: DATE: 01/15/22 TIME: 09:31 Chief Complaint Chief Complaint STEMI - s/p LAD and OM stenting. on brilinta, ASA, statin. Will cont glycemic control with insulin. Cardiology following HLD - statin DM2 - on insulin. previously did not tolerate metformin due to GI side effects. A1c 8.9. Will add jardiance, hold until follow up BMP in 1 week HTN - on amlodipine, losartan NICKY - no CKD per patient, Cr 1.8 initially. Will monitor renal function. This may be his baseline. Obesity - counseled on lifestyle modification Sarcoidosis - from prior bone marrow biopsy, no pulm symptoms, has outpatient f/u in [place], [place] FEN - ADA diet PPX - heparin FULL CODE Dispo - ICU for STEMI care History of Present Illness History of Present Illness Mr Qureshi is a 56yo male with PMHx HLD, DM2, and sarcoidosis who presented to [facility] in [place], [place] c/o chest pain. Pain started at midnight. He initially described to the ED staff a pressure-like sensation in the center of his chest. 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 He was short of breath initially as well. He does have a history of high cholesterol and type 2 diabetes. He rarely drinks, does not smoke or use smokeless tobacco Labs with WBC 10.8, Hb 14.8, platelets 274, NA 135, K3.7, BUN 26, CR 1.8, glucose 246, calcium 9.4, bilirubin 0.7, AST 25, ALT 45, alkaline phosphatase 38, NT proBNP is 734 and high-sensitivity troponin was 364 at 12:27 PM, albumin 4.1, rapid COVID-19 rapid influenza negative. Chest radiograph no acute abnormality COVID twelve-lead EKG rate [address] elevations in V1 V2 with reciprocal depressions in inferior leads. Transferred to [place] for urgent cardiac catheterization. Per report to Wheel Press Clerk with stenting to LAD and OM and RCA with 70% occlusion no intervention on this artery. Seen bedside in ICU. Notes he is chest pain-free and his pain in his right arm has resolved. He is able to relate that he and his are moving from [facility] and recently closed on a house in [facility]. He works sales for [employer]. 01/14: Seen bedside. No further chest pain no right arm pain. Pending echocardiogram currently. He notes he had significant severe psychiatric side effects depression and rage previously on beta-blockers and he requests these be avoided 01/15: In ICU. Chest pain-free. Glycemic control improved. Counseled on A1c of 8.9 and need for oral medications will write outpatient prescription for Jardiance pending a repeat basic metabolic panel in a week after reduction of his losartan dosing. Cannot tolerate beta-blockers we will continue his home amlodipine. Per cardiology will need outpatient reassessment of RCA lesion soon. He is moving from [facility] to [place] and will be here after February 19. We will follow-up base metabolic panel in a week. Echocardiogram completed full read pending Vitals/I&O Vitals/I&O: Vital Signs Date Time Temp Pulse Resp B/P (MAP) Pulse Ox O2 Delivery O2 Flow Rate FiO2 01/15/22 08:06 80 141/92 01/15/22 04:14 98.6 10 97 Room Air 98.6 01/14/22 16:00 97.0 I & O 01/14/22 01/14/22 01/15/22 14:59 22:59 06:59 Intake Total 600 ml 600 ml 400 ml Output Total 950 ml 800 ml 1125 ml Balance -350 ml -200 ml -725 ml Physical Exam General: Alert, Oriented X3 Heart: Regular rate Abdomen: Soft, No tenderness Extremities: No edema Skin: No rashes, No breakdown, No significant lesion Labs Labs: Laboratory Tests Test 01/14/22 12:56 01/14/22 17:11 01/14/22 20:58 01/15/22 05:45 Glucose (Fingerstick) 194 mg/dL (70-99) 203 mg/dL (70-99) 188 mg/dL (70-99) Sodium Level 137 mmol/L (136-145) Potassium Level 3.6 mmol/L (3.5-5.1) Chloride Level 103 mmol/L (98-107) Carbon Dioxide Level 26 mmol/L (21-32) Anion Gap 8 (6-14) Blood Urea Nitrogen 24 mg/dL (8-26) Creatinine 2.1 mg/dL (0.7-1.3) Estimated GFR (Cockcroft-Gault) 32.7 Glucose Level 195 mg/dL (70-99) Calcium Level 8.6 mg/dL (8.5-10.1) Test 01/15/22 08:11 Glucose (Fingerstick) 179 mg/dL (70-99) Comment Review of Relevant I have reviewed the following items rj (where applicable) has been applied. Medications: Current Medications Medications (Trade) Dose Ordered Sig/Jossue Route PRN Reason Start Time Stop Time Status Last Admin Dose Admin Insulin Human Lispro (HumaLOG) 12 units TIDAC SQ 01/14/22 16:30 01/14/22 14:42 DC 01/14/22 13:18 Insulin Human Lispro (HumaLOG) 0-9 UNITS TIDACHC SQ 01/14/22 14:40 01/14/22 16:30 Insulin Human Lispro (HumaLOG) 12 units TIDAC SQ 01/14/22 16:30 01/14/22 17:13 Amlodipine Besylate (Norvasc) 10 mg DAILY PO 01/14/22 17:00 01/15/22 08:05 Justifications for Admission Chest Pain Indications Poss tachycardia?: Yes Justification for admission: Patient has tachycardia (> 100 beats per minute) which is not readily corrected by appropriate treatment within 12 to 24 hours. Other Justification CLAUDE ELIZONDO MD Jan 15, 2022 09:32
--- NOTE | 2022-01-15 09:39 | PDOC ---
SUDHEER MUÑOZ [employer]P MARKETING 01/15/22 0939: CARDIO Progress Notes Date and Time Date of Service 01/15/2022 Time of Evaluation 0920 Subjective Subjective: No Chest Pain, No shortness of breath, No Palpitations Vitals Vitals Vital Signs Date Time Temp Pulse Resp B/P (MAP) Pulse Ox O2 Delivery O2 Flow Rate FiO2 01/15/22 08:06 80 141/92 01/15/22 04:14 98.6 10 97 Room Air 98.6 01/14/22 16:00 97.0 Weight Weight [ ] Input and Output Intake and Output Intake and Output 01/15/22 07:00 Intake Total 1600 ml Output Total 2875 ml Balance -1275 ml Intake Oral 1600 ml Output Urine Total 2875 ml Laboratory Labs Laboratory Tests Test 01/14/22 12:56 01/14/22 17:11 01/14/22 20:58 01/15/22 05:45 Glucose (Fingerstick) 194 mg/dL (70-99) 203 mg/dL (70-99) 188 mg/dL (70-99) Sodium Level 137 mmol/L (136-145) Potassium Level 3.6 mmol/L (3.5-5.1) Chloride Level 103 mmol/L (98-107) Carbon Dioxide Level 26 mmol/L (21-32) Anion Gap 8 (6-14) Blood Urea Nitrogen 24 mg/dL (8-26) Creatinine 2.1 mg/dL (0.7-1.3) Estimated GFR (Cockcroft-Gault) 32.7 Glucose Level 195 mg/dL (70-99) Calcium Level 8.6 mg/dL (8.5-10.1) Test 01/15/22 08:11 Glucose (Fingerstick) 179 mg/dL (70-99) Physical Exam HEENT: Neck Supple W Full Motion Chest: Symmetric LUNGS: Clear to Auscultation Heart: S1S2, RRR (SR) Abdomen: Soft N/T Extremities: No Edema, No Calf Tenderness Neurology: alert, oriented, follow commands Assessment Assessment 1. Acute anterior wall STEMI: critical stenoses involving LAD (culprit vessel) and ramus intermedius and underwent successful PCI/EMILY placements. He has residual 70% RCA stenosis 2. Acute diastolic CHF as evidenced by elevated EDP - Compensated 3. HTN: better controlled 4. HLP 5. DM-2: per PCP. A1C 8.9 6. NICKY vs CKD: unknown baseline Cr at 2.1 GFR 32 Recommendations 1. ASA/brilinta. Secondary prevention measures. Refused BB due to psych adverse effects in the past. Continue home norvasc. Will reduce losartan to 50 and will start on imdur. Will need to obtain BMP next week 2. Will need better control of BG, defer to PCP. Will consider for future jardiance 3. Cardiac rehab 4. He will need staged PCI to RCA in 4 weeks after he moves to area 5. Awaiting TTE Justicifation of Admission Dx: Justifications for Admission: Justification of Admission Dx: Yes BRUCE MARX MD 01/15/22 1833: CARDIO Progress Notes Assessment Assessment Patient seen and examined. Agree with BACK END ENGINEER's assessment and plan. s/p successful PCI/EMILY to LAD and ramus intermedius, CP free. Continue DAPT. Telemetry did not show any significant arrhythmias. LV systolic function normal. Plan for staged PCI to RCA in 4-6 weeks Consider Jardiance to optimize CV outcomes SUDHEER MUÑOZ SVP MARKETING Jan 15, 2022 09:39 BRUCE MARX MD Jan 15, 2022 18:33
[2022-01-15] MEDS ORDERED: ISOSORBIDE MONONITRATE ER 30 MG TAB.ER.24H PO SCH (10:00)
[2022-01-15 10:47] VITALS: BP 145/85
[2022-01-15] MEDS ORDERED: ATOR20TA58 PO (10:47)
[2022-01-15] MEDS ORDERED: ASPI-886 PO (10:47)
[2022-01-15] MEDS ORDERED: TICA90TA PO (10:47)
[2022-01-15] MEDS ORDERED: EMPA10TA3 PO (10:47)
--- NOTE | 2022-01-15 10:59 | PDOC3 ---
Discharge Summary Visit Information Date of Admission: Jan 13, 2022 Date of Discharge: Jan 15, 2022 Admitting Diagnosis: STEMI Final Diagnosis STEMI Brief Hospital Course Allergies Allergies Coded Allergies Type Severity Reaction Last Updated Verified No Known Drug Allergies 01/13/22 No Vital Signs Vital Signs Date Time Temp Pulse Resp B/P (MAP) Pulse Ox O2 Delivery O2 Flow Rate FiO2 01/15/22 10:47 98.5 80 145/85 98 Room Air 98.5 01/15/22 04:14 10 01/14/22 16:00 97.0 Lab Results Laboratory Tests Test 01/13/22 15:47 01/13/22 21:31 01/14/22 04:50 01/14/22 12:56 Glucose (Fingerstick) 236 mg/dL (70-99) 202 mg/dL (70-99) 194 mg/dL (70-99) White Blood Count 10.3 x10^3/uL (4.0-11.0) Red Blood Count 4.51 x10^6/uL (4.30-5.70) Hemoglobin 13.6 g/dL (13.0-17.5) Hematocrit 39.6 % (39.0-53.0) Mean Corpuscular Volume 88 fL (79-100) Mean Corpuscular Hemoglobin 30 pg (25-35) Mean Corpuscular Hemoglobin Concent 34 g/dL (31-37) Red Cell Distribution Width 13.8 % (11.5-14.5) Platelet Count 236 x10^3/uL (140-400) Neutrophils (%) (Auto) 80 % (31-73) Lymphocytes (%) (Auto) 10 % (24-48) Monocytes (%) (Auto) 8 % (0-9) Eosinophils (%) (Auto) 1 % (0-3) Basophils (%) (Auto) 0 % (0-3) Neutrophils # (Auto) 8.2 x10^3/uL (1.8-7.7) Lymphocytes # (Auto) 1.1 x10^3/uL (1.0-4.8) Monocytes # (Auto) 0.9 x10^3/uL (0.0-1.1) Eosinophils # (Auto) 0.1 x10^3/uL (0.0-0.7) Basophils # (Auto) 0.0 x10^3/uL (0.0-0.2) Sodium Level 134 mmol/L (136-145) Potassium Level 3.8 mmol/L (3.5-5.1) Chloride Level 101 mmol/L (98-107) Carbon Dioxide Level 24 mmol/L (21-32) Anion Gap 9 (6-14) Blood Urea Nitrogen 23 mg/dL (8-26) Creatinine 1.9 mg/dL (0.7-1.3) Estimated GFR (Cockcroft-Gault) 36.7 BUN/Creatinine Ratio 12 (6-20) Glucose Level 242 mg/dL (70-99) Hemoglobin A1c 8.9 % (4.8-5.6) Calcium Level 8.4 mg/dL (8.5-10.1) Total Bilirubin 0.7 mg/dL (0.2-1.0) Aspartate Amino Transf (AST/SGOT) 82 U/L (15-37) Alanine Aminotransferase (ALT/SGPT) 44 U/L (16-63) Alkaline Phosphatase 36 U/L (46-116) Total Protein 7.6 g/dL (6.4-8.2) Albumin 3.3 g/dL (3.4-5.0) Albumin/Globulin Ratio 0.8 (1.0-1.7) Triglycerides Level 266 mg/dL (0-150) Cholesterol Level 148 mg/dL (0-200) LDL Cholesterol, Calculated 65 mg/dL (0-100) VLDL Cholesterol, Calculated 53 mg/dL (0-40) Non-HDL Cholesterol Calculated 118 mg/dL (0-129) HDL Cholesterol 30 mg/dL (40-60) Cholesterol/HDL Ratio 4.9 Thyroid Stimulating Hormone (TSH) 2.481 uIU/mL (0.358-3.74) Test 01/14/22 17:11 01/14/22 20:58 01/15/22 05:45 01/15/22 08:11 Glucose (Fingerstick) 203 mg/dL (70-99) 188 mg/dL (70-99) 179 mg/dL (70-99) Sodium Level 137 mmol/L (136-145) Potassium Level 3.6 mmol/L (3.5-5.1) Chloride Level 103 mmol/L (98-107) Carbon Dioxide Level 26 mmol/L (21-32) Anion Gap 8 (6-14) Blood Urea Nitrogen 24 mg/dL (8-26) Creatinine 2.1 mg/dL (0.7-1.3) Estimated GFR (Cockcroft-Gault) 32.7 Glucose Level 195 mg/dL (70-99) Calcium Level 8.6 mg/dL (8.5-10.1) Laboratory Tests Test 01/14/22 12:56 01/14/22 17:11 01/14/22 20:58 01/15/22 05:45 Glucose (Fingerstick) 194 mg/dL (70-99) 203 mg/dL (70-99) 188 mg/dL (70-99) Sodium Level 137 mmol/L (136-145) Potassium Level 3.6 mmol/L (3.5-5.1) Chloride Level 103 mmol/L (98-107) Carbon Dioxide Level 26 mmol/L (21-32) Anion Gap 8 (6-14) Blood Urea Nitrogen 24 mg/dL (8-26) Creatinine 2.1 mg/dL (0.7-1.3) Estimated GFR (Cockcroft-Gault) 32.7 Glucose Level 195 mg/dL (70-99) Calcium Level 8.6 mg/dL (8.5-10.1) Test 01/15/22 08:11 Glucose (Fingerstick) 179 mg/dL (70-99) Brief Hospital Course Mr Qureshi is a 56yo male with PMHx HLD, DM2, and sarcoidosis who presented to [facility] in [place], [place] c/o chest pain. Pain started at midnight. He initially described to the ED staff a pressure-like sensation in the center of his chest. 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 He was short of breath initially as well. He does have a history of high cholesterol and type 2 diabetes. He rarely drinks, does not smoke or use smokeless tobacco Labs with WBC 10.8, Hb 14.8, platelets 274, NA 135, K3.7, BUN 26, CR 1.8, glucose 246, calcium 9.4, bilirubin 0.7, AST 25, ALT 45, alkaline phosphatase 38, NT proBNP is 734 and high-sensitivity troponin was 364 at 12:27 PM, albumin 4.1, rapid COVID-19 rapid influenza negative. Chest radiograph no acute abnormality COVID twelve-lead EKG rate [address] elevations in V1 V2 with reciprocal depressions in inferior leads. Transferred to [place] for urgent cardiac catheterization. Per report to Service Inspector with stenting to LAD and OM and RCA with 70% occlusion no intervention on this artery. Seen bedside in ICU. Notes he is chest pain-free and his pain in his right arm has resolved. He is able to relate that he and his are moving from [facility] and recently closed on a house in [place]. He works sales for [employer]. 01/14: Seen bedside. No further chest pain no right arm pain. Pending echocardiogram currently. He notes he had significant severe psychiatric side effects depression and rage previously on beta-blockers and he requests these be avoided 01/15: In ICU. Chest pain-free. Glycemic control improved. Counseled on A1c of 8.9 and need for oral medications will write outpatient prescription for Jardiance pending a repeat basic metabolic panel in a week after reduction of his losartan dosing. Cannot tolerate beta-blockers we will continue his home amlodipine. Per cardiology will need outpatient reassessment of RCA lesion soon. He is moving from [facility] to [place] and will be here after February 19. We will follow-up base metabolic panel in a week. Echocardiogram completed full read pending Consults: Cardiology Problem list: STEMI - s/p LAD and OM stenting. on brilinta, ASA, statin. Will cont glycemic control with insulin. Cardiology following HLD - statin DM2 - on insulin. previously did not tolerate metformin due to GI side effects. A1c 8.9. Will add jardiance, hold until follow up BMP in 1 week HTN - on amlodipine, losartan NICKY - no CKD per patient, Cr 1.8 initially. Will monitor renal function. This may be his baseline. Obesity - counseled on lifestyle modification Sarcoidosis - from prior bone marrow biopsy, no pulm symptoms, has outpatient f/u in [place], [place] Greater than 30 minutes spent on discharge home with outpatient cardiology follow-up Discharge Information Condition at Discharge: Improved Follow Up: Weeks (1) Disposition/Orders: D/C to Home Scheduled Allopurinol (Allopurinol) 300 Mg Tablet, 300 MG PO DAILY for htn, (Reported) Entered as Reported by: CURTIS VIRAMONTES on 01/13/221447 Last Action: Continued on 01/13/221503 by CLAUDE ELIZONDO MD Amlodipine Besylate (Norvasc) 10 Mg Tablet, 10 MG PO DAILY for htn, (Reported) Entered as Reported by: CURTIS VIRAMONTES on 01/13/221447 Last Action: Reviewed on 01/13/221447 by CURTIS VIRAMONTES Aspirin (Aspirin Ec) 81 Mg Tablet.dr, 81 MG PO DAILYWBKFT for CAD for 30 Days, #30 Ref 11 Prescribed by: CLAUDE ELIZONDO MD on 01/15/22 1047 Atorvastatin Calcium (Atorvastatin Calcium) 20 Mg Tablet, 40 MG PO QHS for CAD/D M2 for 30 Days, #60 Ref 11 Prescribed by: CLAUDE ELIZONDO MD on 01/15/22 1047 Empagliflozin (Jardiance) 10 Mg Tablet, 10 MG PO DAILY for Type 2 diabetes for 30 Days, #30 Ref 3 Prescribed by: CLAUDE ELIZONDO MD on 01/15/221046 Insulin Detemir (Levemir Flextouch) 100 Unit/1 Ml Insuln.pen, 60 UNIT SQ HS for diabetes, (Reported) Entered as Reported by: CURTIS VIRAMONTES on 01/13/221447 Last Action: Converted on 01/13/221503 by CLAUDE ELIZONDO MD Insulin Lispro (Humalog) 100 Unit/1 Ml Insuln.pen, 20 UNIT SQ TIDWMEALS for diabetes, (Reported) Entered as Reported by: CURTIS VIRAMONTES on 01/13/221447 Last Action: Reviewed on 01/13/221447 by CURTIS VIRAMONTES Ticagrelor (Brilinta) 90 Mg Tablet, 90 MG PO BID for CAD for 30 Days, #60 Ref 11 Prescribed by: CLAUDE ELIZONDO MD on 01/15/221046 Discontinued Medications Losartan Potassium (Losartan Potassium) 100 Mg Tablet, 100 MG PO DAILY for HYPERTENSION, (Reported) Entered as Reported by: CURTIS VIRAMONTES on 01/13/221447 Last Action: Converted on 01/13/221503 by CLAUDE ELIZONDO MD Justicifation of Admission Dx: Justifications for Admission: Justification of Admission Dx: Yes CLAUDE ELIZONDO MD Jan 15, 2022 10:59
--- NOTE | 2022-01-15 11:46 | NUR ---
0810 non-administered Humalog. Patient was ordered to receive 12 units of Humalog and 4unit of Humalog sliding scale. Patient refused this medication. He states he takes his own insulin from home (with each meal)
--- NOTE | 2022-01-15 12:47 | NUR ---
patient discharged to home. walked out with [employer].
--- NOTE | 2022-01-15 16:18 | CARD ---
MR#: [id number] Date of Study: 01/15/2022 Ordering Physician: SUDHEER MUÑOZ, Referring Physician: SUDHEER MUÑOZ Tech: Barry Pulliam [facility] APPROVED REPORT EXAM: Two-dimensional and M-mode echocardiogram with Doppler and color Doppler. Other Information Quality : FairHR: 78bpm Rhythm : NSR INDICATION STEMI RISK FACTORS Hypertension Hyperlipidemia 2D DIMENSIONS Left Atrium(2D)3.7 (1.6-4.0cm)IVSd1.4 (0.7-1.1cm) Aortic Root(2D)3.8 (2.0-3.7cm)LVDd5.1 (3.9-5.9cm) LVOT Diameter2.2 (1.8-2.4cm)PWd1.5 (0.7-1.1cm) LA Jkiczm53 (18-58mL)LVDs3.0 (2.5-4.0cm) FS (%) 40.7 %SV89.5 ml LVEF(%)71.2 (>50%) Aortic Valve AoV Peak Brien.116.9cm/sAoV VTI18.7cm AO Peak GR.5.5mmHgLVOT VTI 17.26cm AO Mean GR.3mmHg Mitral Valve MV E Osburlnv57.6cm/sMV DECEL POQF681dm MV A Dkstwnig74.3cm/sE/A Ratio0.7 TDI Lateral E' P. V6.18cm/sMedial E' P. V3.86cm/s E/Lateral E'7.1E/Medial E'11.3 Pulmonary Valve PV Peak Czpprhky286.2cm/s Tricuspid Valve TR P. Zvoobbwa018uc/sTR Peak Gr.22mmHg Pulmonary Vein S1 Jpzuhdhp72.6cm/sS2 Uabencpt49.98cm/s D2 Hhftairm61.0cm/s LEFT VENTRICLE The left ventricle is normal size. There is moderate concentric left ventricular hypertrophy. The lef t ventricular systolic function is normal. The ejection fraction estimated at 55 to 60%. There is nor mal LV segmental wall motion. Transmitral Doppler flow pattern is Grade I-abnormal relaxation pattern . No left ventricle thrombus noted on this study. There is no ventricular septal defect visualized. T here is no left ventricular aneurysm. There is no mass noted in the left ventricle. RIGHT VENTRICLE The right ventricle is normal size. There is normal right ventricular wall thickness. The right ventr icular systolic function is normal. ATRIA The left atrium size is normal. The right atrium size is normal. The interatrial septum is intact wit h no evidence for an atrial septal defect or patent foramen ovale as noted on 2-D or Doppler imaging. AORTIC VALVE The aortic valve is not well seen. Doppler and Color Flow revealed no significant aortic regurgitatio n. There is no significant aortic valvular stenosis. There is no aortic valvular vegetation. MITRAL VALVE The mitral valve is normal in structure and function. Mitral annular calcification is mild. There is no evidence of mitral valve prolapse. There is no mitral valve stenosis. Doppler and Color Flow revea led no mitral valve regurgitation noted. TRICUSPID VALVE The tricuspid valve is normal in structure and function. Doppler and Color Flow revealed no tricuspid valve regurgitation noted. There is no tricuspid valve prolapse or vegetation. There is no tricuspid valve stenosis. PULMONIC VALVE The pulmonary valve is normal in structure and function. Doppler and Color Flow revealed no pulmonic valvular regurgitation. There is no pulmonic valvular stenosis. GREAT VESSELS The aortic root is normal in size. The ascending aorta is normal in size. The pulmonary artery is nor mal. The IVC is normal in size and collapses >50% with inspiration. PERICARDIAL EFFUSION There is no pleural effusion. There is no evidence of significant pericardial effusion. Critical Notification Critical Value: No <Conclusion> The left ventricular systolic function is normal. The ejection fraction estimated at 55 to 60%. There is normal LV segmental wall motion. Transmitral Doppler flow pattern is Grade I-abnormal relaxation pattern. There is no evidence of significant pericardial effusion. Signed by : Jn Sherman, Electronically Approved : 01/15/2022 16:18:39
[2022-01-16] MEDS ORDERED: LOSARTAN POTASSIUM 50 MG TABLET. PO SCH (09:00)
== END 2022-01-15 12:25 | disposition home or self-care (01) | DRG 246 ==
LOC: CCL 13:16 → 1 WEST ICU 13:19
PROVIDERS: ADMIT Internal Medicine; ATTEND Internal Medicine
PROC: B2111ZZ Fluoroscopy of Multiple Coronary Arteries using Low Osmolar Contrast (ICD-10-PCS; principal; 2022-01-13)
PROC: 027135Z Dilation of Coronary Artery, Two Arteries with Two Drug-eluting Intraluminal Devices, Percutaneous Approach (ICD-10-PCS; 2022-01-13)
PROC: B2151ZZ Fluoroscopy of Left Heart using Low Osmolar Contrast (ICD-10-PCS; 2022-01-13)
PROC: 4A023N7 Measurement of Cardiac Sampling and Pressure, Left Heart, Percutaneous Approach (ICD-10-PCS; 2022-01-13)
DX: I21.09 ST elevation (STEMI) myocardial infarction involving other coronary artery of anterior wall (principal); I50.31 Acute diastolic (congestive) heart failure; N17.9 Acute kidney failure, unspecified; D86.9 Sarcoidosis, unspecified; E11.9 Type 2 diabetes mellitus without complications; E66.9 Obesity, unspecified; Z68.30 Body mass index [BMI] 30.0-30.9, adult; E78.00 Pure hypercholesterolemia, unspecified; E78.5 Hyperlipidemia, unspecified; I11.0 Hypertensive heart disease with heart failure; F32.A Depression, unspecified; I25.10 Atherosclerotic heart disease of native coronary artery without angina pectoris; I25.2 Old myocardial infarction; Z79.4 Long term (current) use of insulin; Z80.1 Family history of malignant neoplasm of trachea, bronchus and lung; Z82.49 Family history of ischemic heart disease and other diseases of the circulatory system; Z83.3 Family history of diabetes mellitus; Z90.49 Acquired absence of other specified parts of digestive tract
CPT/HCPCS: 36415; 80048; 80053; 80061; 82962; 83036; 84443; 85025; 92928; 92941; 93306; 93458; 99152; 99153; C1769; C1874; C1894; J0583; J1644; J1815; J2250; J2405; J3010; J3490; Q9967; C1725; C8929; G0378